=== PATIENT | male | born 1970 | race Caucasian/White ===

== ENCOUNTER 2021-04-30 14:22 | Emergency (ER) | payer BC, SELFPAY ==
--- NOTE | ~2021-04-30 | XR_ITS ---
EXAMINATION: XR chest 1V portable INDICATION: Cough TECHNIQUE: Portable AP chest at 1500 hours COMPARISON: None available FINDINGS: There are subtle patchy airspace opacities throughout all lung zones. There is no pleural e ffusion or pneumothorax. The cardiomediastinal silhouette is normal. IMPRESSION: 1. Subtle patchy airspace opacities throughout all lung zones, likely pneumonia. Reviewed, dictated and finalized at location [facility] IMPRESSION: 1. Subtle patchy airspace opacities throughout all lung zones, likely pneumonia .
[2021-04-30 14:31] VITALS: BP 135/97; PULSE 69; RESP 14; TEMP 36.5; O2SAT 99
--- NOTE | 2021-04-30 15:27 | ED.FEVER ---
HPI - Fever General Chief Complaint: Fever Stated Complaint: Exposure to covid- Flu-like symptoms Time Seen by Provider: 04/30/21 14:44 Source: RN notes reviewed History of Present Illness HPI Narrative: Patient presents emergency department from home for cough and weakness. Patient states that he has been feeling ill for the past 1 week he states he has been having intermittent fevers as well as a cough this been nonproductive and generalized weakness. Also some associated rhinorrhea. States that his tested positive for COVID on 04/20/2020 and he has not been tested he states that he has not been vaccinated. He denies any chest pain abdominal pain nausea vomiting Related Data Allergies Allergy/AdvReac Type Severity Reaction Status Date / Time SHRIMP Allergy Unknown Unknown Uncoded 04/30/21 14:42 NO KNOWN DRUG ALLERGIES Allergy Y Uncoded 04/30/21 14:42 (Class Allergy) Review of Systems Review of Systems: Gen.: Reports intermittent fever ENT: reports congestion Respiratory: Denies shortness of breath reports cough CV: Denies chest pain or palpitations GI: Denies abdominal pain nausea, emesis or diarrhea Musculoskeletal: Denies back pain or muscle pain Neuro: Denies numbness, tingling, weakness or focal weakness Skin: Denies rash Except as documented, all other systems reviewed and negative PMFSH Past Medical History Medical History (Updated 04/30/21 @ 16:36 by Estevan Olivares DO) Patient denies significant medical history Social History Social History (Updated 04/30/21 @ 15:30 by Estevan Olivares DO) Smoking status: Never smoker Exam Narrative: APPEARANCE: No acute distress, nontoxic, resting in bed EYES: EOMI HEENT: Normocephalic, atraumatic, OMM RESPIRATORY: No respiratory distress Clear to auscultation bilaterally with no rhonchi wheezing or rales. CARDIOVASCULAR: Regular rate and rhythm without murmurs rubs or gallops. ABDOMINAL: Soft, nontender, nondistended, no rebound or guarding MUSCULOSKELETAl: Moves all extremities. No clubbing, cyanosis or edema. NEURO: Awake and alert. Following commands, speech normal, no focal deficits SKIN:: Warm, dry. No rashes lesions or abrasions PSYCHIATRIC: Normal affect/mood, Course Course Emergency Course: Discussed with patient results of workup and diagnosis. Discussed need for follow-up with primary care, proper use of medication, and reasons to return to the emergency department. Patient understands and agrees to current treatment plan Vital Signs Vital signs: Vital Signs Temperature 97.7 F 04/30/21 14:31 Pulse Rate 69 04/30/21 14:31 Respiratory Rate 14 04/30/21 14:31 Blood Pressure 135/97 H 04/30/21 14:31 Pulse Oximetry 99 04/30/21 14:31 Temperature 97.7 F 04/30/21 14:31 Pulse Rate 69 04/30/21 14:31 Respiratory Rate 14 04/30/21 14:31 Blood Pressure 135/97 H 04/30/21 14:31 Pulse Oximetry 99 04/30/21 14:31 MDM - Fever MDM Narrative Medical decision making narrative: Patient with exposure from to COVID-19 presents for cough and generalized weakness oxygen saturations 99% on room air chest x-ray shows mild patchy infiltrates consistent with COVID COVID swab will be sent patient is felt to be able to be discharged to follow-up as an outpatient Lab Data Labs: Lab Results 04/30/21 Range/Units 16:26 SARS-CoV-2 RNA (RT-PCR) Pending Imaging Data Radiologist's impression: ITS Impressions Chest X-Ray 04/30/21 15:32 IMPRESSION: 1. Subtle patchy airspace opacities throughout all lung zones, likely pneumonia. Discharge Plan Discharge Clinical Impression: Suspected COVID-19 virus infection Patient Disposition: Home, Self-Care Condition: Stable Instructions: Antibiotic Form, COVID-19 (Coronavirus Disease 2019) (ED) Additional Instructions: Return for increasing shortness of breath fever or any other symptoms of concern You had a COVID-19 test obtained today they wi
--- NOTE | 2021-04-30 16:33 | PC.NURSE ---
Dr. Olivares at bedside to discuss result and treatment plan with pt.
[2021-04-30] MEDS: AZITHROMYCIN 250 MG TABLET 500 MG PO (16:47)
[2021-04-30 16:51] VITALS: BP 108/66; PULSE 63; RESP 14; O2SAT 100
[2021-05-01 19:02] LABS: SARS-CoV-2 RNA PCR Positive
== END 2021-04-30 16:52 | disposition home or self-care (01) ==
PROVIDERS: Emergency Provider Emergency Medicine
DX: U07.1 COVID-19 (principal); R91.8 Other nonspecific abnormal finding of lung field
CPT/HCPCS: 71045; 99283; A9270; C9803; U0003; U0005